=== PATIENT | female | born 1960 | race Caucasian/White ===

== ENCOUNTER 2021-01-27 13:51 | Emergency (ER) | payer OTHER ==
[~2021-01-27 13:51] MED LIST: BROMFED DM COU473 ML PO; HYDROXYZINE HCL25 MG PO
[2021-01-27 15:02] LABS: HEMOGLOBIN 14.8 gm/dl (12.3-15.3); RED BLOOD COUNT 4.59 M/UL (4.00-5.10); WHITE BLOOD COUNT 6.5 K/UL (4.5-11.0)
[2021-01-27 15:32] LABS: BUN/CREATININE RATIO 11 (0-10)
[2021-01-27] MEDS ORDERED: SINGULAIR10 MG PO (17:08)
[2021-01-27] MEDS ORDERED: MEDROL DOSEPAK 24 MG PO (17:08)
[2021-01-27] MEDS ORDERED: NEB MACHINE (17:08)
[2021-01-27] MEDS ORDERED: COMBIVENT RESPIM4 GM INH (17:08)
[2021-01-27] MEDS ORDERED: DOXYCYCLINE HY100 M2 PO (17:08)
== END 2021-01-27 17:19 | disposition home or self-care (01) ==
LOC: ER1 13:51
PROVIDERS: Physician Assistant Medical
DX: R06.02 Shortness of breath (principal); Z20.822 Contact with and (suspected) exposure to COVID-19; R05 Cough; F17.210 Nicotine dependence, cigarettes, uncomplicated
CPT/HCPCS: 0240U; 71046; 80053; 82550; 82553; 83874; 83880; 84484; 85025; 93005; 94664; 99285

== ENCOUNTER → 2021-02-01 | Outpatient (CLI) | payer OTHER ==
[~2021-02-01] MED LIST changes: +COMBIVENT RESPIM4 GM INH; +DOXYCYCLINE HY100 M2 PO; +MEDROL DOSEPAK 24 MG PO; +NEB MACHINE; +SINGULAIR10 MG PO
[2021-02-01 15:35] LABS: HEMOGLOBIN 14.1 gm/dl (12.3-15.3); RED BLOOD COUNT 4.62 M/UL (4.00-5.10); WHITE BLOOD COUNT 6.6 K/UL (4.5-11.0)
[2021-02-01 15:57] LABS: BUN/CREATININE RATIO 22 (0-10)
[2021-02-02 08:39] LABS: THYROXINE (T4) 6.9 ug/dL (4.5-12.0)
== END ==
LOC: LAB 13:41
PROVIDERS: Nurse Practitioner Family
DX: R53.82 Chronic fatigue, unspecified (principal); Z13.1 Encounter for screening for diabetes mellitus; Z13.220 Encounter for screening for lipoid disorders
CPT/HCPCS: 36415; 80053; 80061; 81001; 83036; 84436; 84443; 84480; 85025

== ENCOUNTER → 2021-04-08 | Outpatient (CLI) | payer OTHER | LOC: HEART 5 15:49 | DX: R06.02 Shortness of breath (principal) | CPT/HCPCS: 94060; 94729 ==

== ENCOUNTER → 2021-06-21 | Outpatient (CLI) | payer OTHER ==
[2021-06-21 14:59] LABS: HEMOGLOBIN 14.6 gm/dl (12.3-15.3); RED BLOOD COUNT 4.55 M/UL (4.00-5.10); WHITE BLOOD COUNT 5.1 K/UL (4.5-11.0)
[2021-06-21 15:17] LABS: BUN/CREATININE RATIO 11 (0-10)
[2021-06-22 07:12] LABS: VITAMIN D, 25-HYDROXY 29.4 ng/mL (30.0-100.0)
[2021-06-22 09:13] LABS: THYROXINE (T4) 7.2 ug/dL (4.5-12.0)
== END ==
LOC: LAB 13:50
PROVIDERS: Nurse Practitioner
DX: J44.9 Chronic obstructive pulmonary disease, unspecified (principal); R03.0 Elevated blood-pressure reading, without diagnosis of hypertension; E78.5 Hyperlipidemia, unspecified; Z71.6 Tobacco abuse counseling
CPT/HCPCS: 80053; 80061; 81001; 84436; 84443; 84480; 85025